=== PATIENT | female | born 1950 | race Caucasian/White ===

== ENCOUNTER 2022-12-02 10:25 | Emergency (ER) | payer OTHER, MEDICAID ==
[~2022-12-02] VITALS: Ht 157.5 cm; Wt 88.9 kg
[2022-12-02 10:52] VITALS: BP_SYST 147; PULSE 85; RESP 18; TEMP 97; O2SAT 98
--- NOTE | 2022-12-02 10:56 | NUR ---
ER DR. CHÁVEZ EXAMINING PT IN TRIAGE
--- NOTE | 2022-12-02 11:09 | NUR ---
Patient to ER bed 4 for evaluation. Patient seen by MD and labs drawn in triage room. Report given to MELO Loyola charge and MELO Landrum.
--- NOTE | 2022-12-02 11:15 | NUR ---
BIB PRIVATE CAR C/O LEFT BREAST PAIN. REPORTS PAIN AT 4/10. PT REPORTS BURNING SENSATION. A/OX4, AMBULATORY. WAS SEEN [facility] FOR THE SAME COMPLAIN. NO DISCHARGE AND HAIR GROWTH ON THE SITE, NO DISCOLORATION.
[2022-12-02 11:18] LABS: BASOPHILS # (AUTO) 0.1 K/uL (0.0-0.2); BASOPHILS % (AUTO) 1.1 % (0.0-2.0); EOSINOPHILS # (AUTO) 0.2 K/uL (0.0-0.4); EOSINOPHILS % (AUTO) 1.5 % (0.0-4.0); HEMATOCRIT 46.6 % (36-48); HEMOGLOBIN 15.5 g/dL (12.0-16.0); LYMPHOCYTES # (AUTO) 2.8 K/uL (1.0-5.5); LYMPHOCYTES % (AUTO) 26.7 % (20.5-51.5); MEAN CORPUSCULAR HEMOGLOBIN 30 pg (27-31); MEAN CORPUSCULAR HGB CONC 33 % (32-36); MEAN CORPUSCULAR VOLUME 90 fL (79.0-98.0); MONOCYTES # (AUTO) 0.7 K/uL (0.0-1.0); MONOCYTES % (AUTO) 6.5 % (1.7-9.3); NEUTROPHILS # (AUTO) 6.6 K/uL (1.8-7.7); NEUTROPHILS % (AUTO) 64.2 % (40.0-70.0); PLATELET COUNT (AUTO) 209 K/uL (130-430); RED BLOOD CELL COUNT(AUTO) 5.18 MIL/uL (4.2-6.2); RED CELL DISTRIBUTION WIDTH 13.1 % (9.0-15.0); WHITE BLOOD COUNT (AUTO) 10.3 K/uL (4.8-10.8)
[2022-12-02 11:44] LABS: ALANINE AMINOTRANSFERASE 21 U/L (12-78); ALBUMIN 3.8 g/dL (3.4-4.8); ANION GAP 11 (5-15); ASPARTATE AMINOTRANSFERASE 11 U/L (10-37); CALCIUM 8.7 mg/dL (8.4-11.0); CHLORIDE 97 mmol/L (98-107); CREATININE 0.65 mg/dL (0.55-1.30); TOTAL BILIRUBIN 0.5 mg/dL (0.0-1.0); UREA NITROGEN, BLOOD 15 mg/dL (8-21)
[2022-12-02 12:00] LABS: GLUCOSE 412 mg/dL (74-106)
[2022-12-02] MEDS ORDERED: INSULIN REGULAR, HUMAN 10 UNITS/0.1 ML, 3 ML VIAL SUBCUT ONE (12:15)
[2022-12-02] MEDS ORDERED: IBUP-1969 PO (13:00)
[2022-12-02] MEDS ORDERED: TRAM50TA2 PO (13:00)
[2022-12-02] MEDS ORDERED: IBUPROFEN 800 MG TABLET PO ONE (13:45)
[2022-12-02] MEDS ORDERED: HYDROcodone/ACETAMIN 10-325 MG TAB PO ONE (13:45)
--- NOTE | 2022-12-02 14:10 | NUR ---
Patient given written and verbal discharge instructions and verbalizes understanding. ER MD discussed with patient the results and treatment provided. Patient in stable condition. ID arm band removed. Rx of given. Patient educated on pain management and to follow up with PMD. Pain Scale . Opportunity for questions provided and answered. Medication side effect fact sheet provided.
== END 2022-12-02 14:10 | disposition home or self-care (01) ==
LOC: SED 10:25
DX: N64.4 Mastodynia (principal); Z79.899 Other long term (current) drug therapy
CPT/HCPCS: 99284; 71045; 80053; 85025; 36415; 96372; 83605; 82397; J1815